=== PATIENT | female | born 1960 ===

== ENCOUNTER 2019-12-28 22:14 | Outpatient (REF) | payer BC, SELFPAY ==
[2019-12-31 00:02] LABS: COVID-19 RT-PCR Result NEGATIVE (Negative)
== END 2019-12-28 22:34 ==
LOC: NCHCN 22:14
PROVIDERS: Visit Provider Nurse Practitioner Family
DX: B34.9 Viral infection, unspecified (principal)
CPT/HCPCS: U0003

== ENCOUNTER 2023-06-25 18:36 | Outpatient (REF) | payer MEDICARE, OTHER, SELFPAY ==
[2023-06-25 16:57] LABS: BUN 14 mg/dL (7-18); CREATININE 0.7 mg/dL (0.55-1.02); Calcium 8.7 mg/dL (8.5-10.1); Calculated LDL 121 mg/dL (<100); Chloride 108 mmol/L (98-107); Cholesterol 217 mg/dL (<200); Estimated GFR 95.92 (mL/min/1.73m2); Glucose 74 mg/dL (74-106); HDL Cholesterol 90 mg/dL (40-60); Sodium 143 mmol/L (136-145); TSH (W/Ref FT4) 1.77 uIU/mL (0.36-3.74); Triglyceride 30 mg/dL (<150)
== END 2023-06-25 18:37 | disposition home or self-care (01) ==
LOC: NCHCN 18:36
PROVIDERS: Visit Provider Family Medicine
DX: E04.1 Nontoxic single thyroid nodule (principal); Z00.00 Encounter for general adult medical examination without abnormal findings
CPT/HCPCS: 80048; 80061; 84443